=== PATIENT | female | born 1980 | race Caucasian/White ===

== ENCOUNTER 2023-12-07 16:38 | Emergency (ER) | payer OTHER, SELFPAY ==
[2023-12-07 16:53] VITALS: BP 115/87; PULSE 69; RESP 16; TEMP 36.6; O2SAT 100
--- NOTE | 2023-12-07 17:02 | ED.GENADULT ---
HPI - General Adult General Chief complaint: Skin/Abscess/Foreign Body Stated complaint: infected cyst/ cold symptoms Time Seen by Provider: 12/07/23 17:02 Source: patient and RN notes reviewed Mode of arrival: ambulatory Limitations: no limitations History of Present Illness HPI narrative: 43-year-old female presented for 2 complaints. First, she endorses a recurrent Bartholin's cyst which has been draining over the past 4 days. Endorses improvement in the pain since cyst has been draining. Denies concern for STD. Denies hematuria, nausea, vomiting, abdominal pain, flank pain, constipation, diarrhea, fevers or chills. Scheduled with [facility] in Feb. Also, pt reports cough and chest congestion x2.5 months. Endorses mucous is in the morning. Taking antihistamine and mucinex. States she tends to have respiratory infections lasting 4 weeks since having covid, but this has persisted. Using albuterol inhaler. Denies sob, wheezing, cp, palpitation or fever. Related Data Home Medications Medication Instructions Recorded Confirmed albuterol sulfate 90 mcg/actuation 2 puff inhalation PRN PRN 12/07/23 12/07/23 aerosol inhaler Shortness Of Breath Or Wheezing levonorgestrel 21 mcg/24 hr (up to See Rx Instructions .Route .COMPLEX 12/07/23 12/07/23 8 years) 52 mg intrauterine device (Mirena) Allergies Allergy/AdvReac Type Severity Reaction Status Date / Time No Known Allergies Allergy Verified 12/07/23 16:51 Review of Systems Review of Systems: CONSTITUTIONAL: Denies body aches, fever, chills, or sweats. CARDIOVASCULAR: Denies chest pain, palpitations, or edema. RESPIRATORY: Denies cough or dyspnea. GASTROINTESTINAL: Denies abdominal pain, nausea, vomiting, or diarrhea. GENITOURINARY: reports bartholin cyst denies dysuria, frequency, urgency, hematuria, flank pain SKIN: Denies rash, itching, or wounds. MUSCULOSKELETAL: Denies back pain or myalgia. PMFSH Comments At time of signature, I have reviewed and agree with nursing past medical, surgical, social and family history unless otherwise noted. Please see nursing chart for further information. There is no relevant family history pertinent to the presenting complaint Exam Narrative: GENERAL: Well-appearing ENT: Mucous membranes pink and moist. CHEST: No respiratory distress. Clear to auscultation. Frequent moist nonproductive cough HEART: Regular rate and rhythm. ABDOMEN: Soft, nontender, nondistended, normal active bowel sounds. No CVA tenderness : Right labia with subcutaneous tender nodule c/w bartholin cyst, purulent material expressed manually from follicles, pt tolerated well. Chaperoned by Essie SHELTON. SKIN: Warm, dry, no rash. NEURO: No focal deficits. Alert and oriented x3. Gait steady. PSYCH: Normal affect. Course Course Emergency Course: Patient is aware of diagnosis, understands and agrees to treatment plan. Anticipatory guidance given. Patient agrees to follow-up as directed and is aware of reasons to seek care at the emergency department. Portions of this record may have been created with voice recognition software Level of Care: Express Care Visit Vital Signs Vital signs: Vital Signs Temperature 97.9 F 12/07/23 16:53 Pulse Rate 69 12/07/23 16:53 Respiratory Rate 16 12/07/23 16:53 Blood Pressure 115/87 12/07/23 16:53 Pulse Oximetry 100 12/07/23 16:53 Oxygen Delivery Room Air 12/07/23 16:53 Temperature 97.9 F 12/07/23 16:53 Pulse Rate 69 12/07/23 16:53 Respiratory Rate 16 12/07/23 16:53 Blood Pressure 115/87 12/07/23 16:53 Pulse Oximetry 100 12/07/23 16:53 Oxygen Delivery Room Air 12/07/23 16:53 Reviewed Medical Decision Making MDM Narrative Medical decision making narrative: Discussed physical exam findings consistent with Bartholin Cyst and lower URI. Pt tolerated manual expressing of fluid from cyst. Culture sent. Reviewed Rx's. Advised supportive measures and signs/sy
== END 2023-12-07 17:33 | disposition home or self-care (01) ==
PROVIDERS: Emergency Provider Nurse Practitioner Family; PCP Internal Medicine
DX: N75.1 Abscess of Bartholin's gland (principal); J06.9 Acute upper respiratory infection, unspecified; Z86.16 Personal history of COVID-19
CPT/HCPCS: 87070; 87075; 87076; 87077; 87186; 87205; 99203; G0463